=== PATIENT | female | born 1980 | race Asian ===

== ENCOUNTER → 2018-07-29 | Outpatient (CLI) | payer OTHER ==
[~2018-07-29] MED LIST: 0.9 % SODIUM CHLORIDE 10 ML VIAL ONE; IOHEXOL 300 MG/ML 50 ML VIAL. ONE; LIDOCAINE 1% PF 30 ML VIAL. ONE; methylPREDNISolone ACETATE 80 MG/ML VIAL. ONE
== END | disposition home or self-care (01) ==
LOC: SURG 10:21
PROVIDERS: ATTEND Anesthesiology Pain Medicine
DX: M54.16 Radiculopathy, lumbar region (principal); J45.909 Unspecified asthma, uncomplicated; Z79.899 Other long term (current) drug therapy; Z91.09 Other allergy status, other than to drugs and biological substances
CPT/HCPCS: 62323; J1040; J2001; Q9967

== ENCOUNTER 2020-09-08 11:00 | Emergency (ER) | payer OTHER ==
[~2020-09-08] VITALS: Ht 167.6 cm; Wt 70.0 kg
[2020-09-08 11:00] VITALS: BP 115/74
[2020-09-08] MEDS ORDERED: KETOROLAC 60 MG/2 ML VIAL. IM ONE (11:45)
--- NOTE | 2020-09-08 13:11 | RAD ---
CT scan of the lumbar spine without contrast 09/08/2020 CLINICAL HISTORY: Low back pain. TECHNIQUE: Unenhanced contiguous, 0.625 mm axial sections were obtained through the lumbar spine. 3 m m reconstructed sagittal, axial and coronal images were obtained. One or more of the following individualized dose reduction techniques were utilized for this study: 1. Automated exposure control. 2. Adjustment of the mA and/or kV according to patient size. 3. Use of iterative reconstruction technique. FINDINGS: Sagittal and coronal reconstructed images demonstrate minimal S-shaped curvature of the tho racolumbar spine. Disc space narrowing, vertebral endplate sclerosis and minimal anterior and posteri or vertebral body osteophyte formation are seen involving the L2-3 disc space. No fracture or subluxation of the lumbar vertebrae is seen. On the axial images the L1-2 disc space is within normal limits. At the L2-3 disc space there is a mild to moderate generalized disc bulge which is eccentric to the r ight. Degenerative changes are seen involving the facet joints bilaterally. There is mild ligament fl avum hypertrophy bilaterally. There is prominence of the posterior epidural fat. These findings when combined result in mild right greater than left central spinal canal stenosis. No neural foraminal st enosis is seen. At the L3-4, L4-5 and L5-S1 disc spaces there are minimal to mild generalized disc bulges. Degenerati ve changes are seen involving the facet joints bilaterally. There is mild ligament flavum hypertrophy bilaterally. These findings do not result in significant central spinal canal or neural foraminal st enosis. IMPRESSION: The changes of degenerative disc disease are seen involving the lumbar spine. These findi ngs result in mild right greater than left central spinal canal stenosis at L2-3. No neural foraminal stenosis is seen. No acute osseous abnormality is noted. Electronically signed by: Rey Jason MD (09/08/2020 1:09 PM) [id number]
[2020-09-08 13:12] LABS: BACTERIA,URINE FEW /HPF (0-FEW); BILIRUBIN,URINE NEG (NEG); CLARITY,URINE CLEAR; COLOR,URINE STRAW; GLUCOSE,URINE NEG (NEG); NITRITE,URINE NEG (NEG); RBC,URINE 0 /HPF (0-2); SQUAMOUS EPITHELIAL CELL,UR MANY /LPF; UROBILINOGEN,URINE 0.2 mg/dL (0.2 mg/dL)
[2020-09-08] MEDS ORDERED: ORPHENADRINE CITRATE 60 MG/2 ML VIAL. IM ONE (13:30)
--- NOTE | 2020-09-08 13:38 | RAD ---
CT scan of the pelvis without contrast 09/08/2020 CLINICAL HISTORY: Pelvic pain. TECHNIQUE: Unenhanced, contiguous, 0.625 mm axial sections were obtained through the pelvis. 5 mm rec onstructed sagittal, axial and coronal images were obtained. One or more of the following individualized dose reduction techniques were utilized for this study: 1. Automated exposure control. 2. Adjustment of the mA and/or kV according to patient size. 3. Use of iterative reconstruction technique. FINDINGS: The urinary bladder is contracted. No adnexal mass is seen. No free fluid is noted. Calcifi cations are seen within the right pelvis consistent phleboliths. The osseous structures are intact. N o significant degenerative changes are noted. IMPRESSION: No acute abnormality is seen. Electronically signed by: Rey Jason MD (09/08/2020 1:36 PM) [id number]
[2020-09-08] MEDS ORDERED: CYCL5TAB PO (13:53)
[2020-09-08] MEDS ORDERED: IBUP800T19 PO (13:53)
--- NOTE | 2020-09-08 13:54 | PHYS DOC ---
Past History Past Medical History: Asthma, Other Additional Past Medical Histor: back pain Past Surgical History: Appendectomy Alcohol Use: None General Adult EDM: Chief Complaint: BACK PAIN OR INJURY HPI: HPI: Patient is a 31-year-old female with 2 days of low back pain. Patient states she was getting increased in the restroom when she had an acute onset of pain. States the pain is in bilateral low back and does not radiate. Has had back problems in the past and has seen a spine surgeon with having epidural injections years ago. Patient has not had an MRI. Denies any weakness, recent weight loss, fevers, night sweats, history of IV drug use, bowel or bladder dysfunction, or personal or family history of cancer. Denies any recent falls or heavy lifting. Review of Systems: Review of Systems: All other systems within normal limits except for as noted in the HPI Current Medications: Current Meds: Current Medications Medications (Trade) Dose Ordered Sig/Kaitlyn Start Time Stop Time Status Last Admin Dose Admin Ketorolac Tromethamine (Toradol Im) 60 mg 1X ONCE 09/08/20 11:45 09/08/20 11:46 DC 09/08/20 12:21 60 MG Orphenadrine Citrate (Norflex) 60 mg 1X ONCE 09/08/20 13:30 09/08/20 13:35 DC 09/08/20 13:34 60 MG Allergies: Allergies: Allergies Coded Allergies Type Severity Reaction Last Updated Verified No Known Drug Allergies 09/08/20 No Physical Exam: PE: Constitutional: Well developed, well nourished, no acute distress, non-toxic appearance. [] HENT: Normocephalic, atraumatic, bilateral external ears normal, nose normal. [] Eyes: PERRLA, conjunctiva normal, no discharge. [] Neck: No rigidity, supple, no stridor. [] Cardiovascular: Regular rate and rhythm, brisk cap refill [] Lungs & Thorax: Non labored symmetric respirations, no tachypnea or respiratory distress [] Abdomen: Soft, nondistended. Skin: Warm, dry, no erythema, no rash. [] Back: Unremarkable, no step-off or deformity, pain over lower lumbar spine and sacrum Extremities: No deformities, range of motion grossly intact, no lower extremity edema [] Neurologic: Alert and oriented X 3, no focal deficits noted. [] Psychologic: Affect normal, judgement normal, mood normal. [] Current Patient Data: Labs: Laboratory Tests Test 09/08/20 11:54 09/08/20 12:07 Urine Collection Type Unknown Urine Color Straw Urine Clarity Clear Urine pH 5.5 Urine Specific [place] <=1.005 Urine Protein Neg (NEG-TRACE) Urine Glucose (UA) Neg mg/dL (NEG) Urine Ketones (Stick) Neg mg/dL (NEG) Urine Blood Trace (NEG) Urine Nitrite Neg (NEG) Urine Bilirubin Neg (NEG) Urine Urobilinogen Dipstick 0.2 mg/dL (0.2 mg/dL) Urine Leukocyte Esterase Small (NEG) Urine RBC 0 /HPF (0-2) Urine WBC 5-10 /HPF (0-4) Urine Squamous Epithelial Cells Many /LPF Urine Bacteria Few /HPF (0-FEW) POC Urine HCG, Qualitative hcg negative (Negative) Vital Signs: Vital Signs Date Time Temp Pulse Resp B/P (MAP) Pulse Ox O2 Delivery O2 Flow Rate FiO2 09/08/20 11:00 97.7 87 16 115/74 (88) 97 Room Air EKG: EKG: [] Radiology/Procedures: Radiology/Procedures: CT scan of the pelvis without contrast 09/08/2020 CLINICAL HISTORY: Pelvic pain. TECHNIQUE: Unenhanced, contiguous, 0.625 mm axial sections were obtained through the pelvis. 5 mm reconstructed sagittal, axial and coronal images were obtained. One or more of the following individualized dose reduction techniques were ut ilized for this study: 1. Automated exposure control. 2. Adjustment of the mA and/or kV according to patient size. 3. Use of iterative reconstruction technique. FINDINGS: The urinary bladder is contracted. No adnexal mass is seen. No free fluid is noted. Calcifications are seen within the right pelvis consistent phleboliths. The osseous structures are intact. No significant degenerative changes are noted. IMPRESSION: No acute abnormality is seen. CT scan of the pelvis without contrast 09/08/2020 CLINICAL HISTORY: Pelvic pain. TECHNIQUE: Unenhanced, contiguous, 0.625 mm axial sections were obtained through the pelvis. 5 mm reconstructed sagittal, axial and coronal images were obtained. One or more of the following individualized dose reduction techniques were utilized for this study: 1. Automated exposure control. 2. Adjustment of the mA and/or kV according to patient size. 3. Use of iterative reconstruction technique. FINDINGS: The urinary bladder is contracted. No adnexal mass is seen. No free fluid is noted. Calcifications are seen within the right pelvis consistent phleboliths. The osseous structures are intact. No significant degenerative changes are noted. IMPRESSION: No acute abnormality is seen.[] Heart Score: C/O Chest Pain: No Risk Factors: Risk Factors: DM, Current or recent (<one month) smoker, HTN, HLP, family history of CAD, obesity. Risk Scores: Score 0 - 3: 2.5% MACE over next 6 weeks - Discharge Home Score 4 - 6: 20.3% MACE over next 6 weeks - Admit for Clinical Observation Score 7 - 10: 72.7% MACE over next 6 weeks - Early Invasive Strategies Course & Med Decision Making: Course & Med Decision Making Pertinent Labs and Imaging studies reviewed. (See chart for details) [] Dragon Disclaimer: Dragon Disclaimer: This electronic medical record was generated, in whole or in part, using a voice recognition dictation system. Departure Departure: Impression: Primary Impression: Lumbago Disposition: HOME / SELF CARE / HOMELESS Condition: STABLE Referrals: JUAN A IZAGUIRRE APRN (PCP) Patient Instructions: Back Pain, Adult Scripts Cyclobenzaprine Hcl (CYCLOBENZAPRINE HCL) 5 Mg Tablet 1 TAB PO PRN TID PRN for MUSCLE SPASMS for 5 Days, #15 TAB Prov: AUNDREA QURESHI MD 09/08/20 Ibuprofen (IBUPROFEN) 800 Mg Tablet 1 TAB PO TID PRN for PAIN, #30 TAB Prov: AUNDREA QURESHI MD 09/08/20 AUNDREA QURESHI MD September 08, 2020 13:54
== END 2020-09-08 14:00 | disposition home or self-care (01) ==
LOC: ER 11:00
DX: M54.5 Low back pain (principal); J45.909 Unspecified asthma, uncomplicated
CPT/HCPCS: 72131; 72192; 81001; 81025; 87086; 96372; 99285; J1885; J2360